=== PATIENT | male | born 1980 | race Caucasian/White ===

== ENCOUNTER 2018-10-03 19:02 | Emergency (ER) | payer SELFPAY ==
[~2018-10-03] VITALS: Ht 188 cm; Wt 145.4 kg
[~2018-10-03 19:02] MED LIST: ALBU8.5H8 INH; BUDE10.22 INH
[2018-10-03 19:03] VITALS: BP 134/85
--- NOTE | 2018-10-03 19:19 | NUR ---
FIRST CONTACT WITH PT. PT C/O RIGHT EAR BUD STUCK IN EAR 10 MINUTES AGO. PT'S AOX4. RESPS EVEN AND UNLABORED.
--- NOTE | 2018-10-03 20:04 | NUR ---
PT GIVEN DC INSTRUCTIONS. PT'S AOX4. RESPS EVEN AND UNLABORED. NO ACUTE DISTRESS AT DC.
== END 2018-10-03 20:05 | disposition home or self-care (01) ==
LOC: ED 19:58
DX: T16.1XXA Foreign body in right ear, initial encounter (principal); J45.909 Unspecified asthma, uncomplicated; X58.XXXA Exposure to other specified factors, initial encounter; Y93.89 Activity, other specified; Y92.89 Other specified places as the place of occurrence of the external cause; Y99.8 Other external cause status
CPT/HCPCS: 69200; 99284